=== PATIENT | male | born 1955 | race Caucasian/White ===

== ENCOUNTER → 2018-01-31 | Emergency (ER) | payer OTHER ==
[~2018-01-31] VITALS: Ht 162.6 cm; Wt 73.9 kg
== END | disposition home or self-care (01) ==
LOC: ER 19:32
DX: S30.0XXA Contusion of lower back and pelvis, initial encounter (principal); M62.838 Other muscle spasm; V49.9XXA Car occupant (driver) (passenger) injured in unspecified traffic accident, initial encounter; Y93.89 Activity, other specified; Y92.488 Other paved roadways as the place of occurrence of the external cause; Y99.8 Other external cause status

== ENCOUNTER 2018-06-29 22:58 | Emergency (ER) | payer OTHER ==
[~2018-06-29] VITALS: Ht 162.6 cm; Wt 76.2 kg
[2018-06-30] MEDS ORDERED: MECLIZINE HCL25 MG PO (04:36)
== END 2018-06-30 04:56 | disposition home or self-care (01) ==
LOC: ER 22:58
DX: R42 Dizziness and giddiness (principal)

== ENCOUNTER 2019-04-01 08:54 | Emergency (ER) | payer OTHER ==
[~2019-04-01] VITALS: Ht 162.6 cm; Wt 77.6 kg
[~2019-04-01 08:54] MED LIST: MECLIZINE HCL25 MG PO
[2019-04-01] MEDS ORDERED: ZOLOFT100 MG PO (09:02)
== END 2019-04-01 11:50 | disposition home or self-care (01) ==
LOC: ER 08:54
DX: M79.622 Pain in left upper arm (principal); R20.0 Anesthesia of skin; T43.225A Adverse effect of selective serotonin reuptake inhibitors, initial encounter; Y92.89 Other specified places as the place of occurrence of the external cause

== ENCOUNTER 2022-02-06 05:37 | Emergency (ER) | payer OTHER ==
[~2022-02-06] VITALS: Ht 162.6 cm; Wt 72.6 kg
[~2022-02-06 05:37] MED LIST changes: +ZOLOFT100 MG PO
== END 2022-02-06 15:43 | disposition home or self-care (01) ==
LOC: ER 05:37
DX: R10.32 Left lower quadrant pain (principal); K44.9 Diaphragmatic hernia without obstruction or gangrene; T18.128A Food in esophagus causing other injury, initial encounter; K59.09 Other constipation

== ENCOUNTER 2023-02-20 13:36 | Emergency (ER) | payer OTHER ==
[~2023-02-20] VITALS: Ht 162.6 cm; Wt 69.9 kg
== END 2023-02-20 19:13 | disposition home or self-care (01) ==
LOC: ER 13:36
DX: K29.70 Gastritis, unspecified, without bleeding (principal)

== ENCOUNTER 2023-03-12 19:02 | Inpatient (IN) | payer OTHER ==
[~2023-03-12] VITALS: Ht 154.9 cm; Wt 69.4 kg
== END 2023-03-16 16:35 | disposition home or self-care (01) | DRG 311 ==
LOC: ER 19:02 → MEDI 03-13 19:47
PROVIDERS: ADMIT Specialist; ATTEND Specialist
PROC: B246ZZZ Ultrasonography of Right and Left Heart (ICD-10-PCS; 2023-03-13)
PROC: 4A12X4Z Monitoring of Cardiac Electrical Activity, External Approach (ICD-10-PCS; 2023-03-13)
PROC: 4A02XM4 Measurement of Cardiac Total Activity, External Approach (ICD-10-PCS; principal; 2023-03-14)
PROC: 3E073KZ Introduction of Other Diagnostic Substance into Coronary Artery, Percutaneous Approach (ICD-10-PCS; 2023-03-14)
DX: I24.9 Acute ischemic heart disease, unspecified (principal); I11.9 Hypertensive heart disease without heart failure; R77.8 Other specified abnormalities of plasma proteins; R00.2 Palpitations